=== PATIENT | male | born 1940 | race Caucasian/White ===

== ENCOUNTER → 2021-03-26 | Day surgery (SDC) | payer MEDICARE, MEDICAID ==
[2021-03-22 16:15] LABS: BASOPHILS # (AUTO) 0.1 X10'3 (0-0.2); EOSINOPHILS # (AUTO) 0.2 X10'3 (0-0.9); EOSINOPHILS % (AUTO) 2.5 % (0-6); LYMPHOCYTES # (AUTO) 1.8 X10'3 (1.1-4.8); LYMPHOCYTES % (AUTO) 21.1 % (21-51); MEAN CORPUSCULAR HEMOGLOBIN 31.6 PG (27.0-31.0); MEAN CORPUSCULAR HGB CONC 34.4 g/dL (33.0-36.5); MEAN CORPUSCULAR VOLUME 91.9 FL (78-98); MEAN PLATELET VOLUME 8.5 FL (7.4-10.4); MONOCYTES % (AUTO) 11.6 % (2-12); NEUTROPHILS # (AUTO) 5.3 X10'3 (1.8-7.7); NEUTROPHILS % (AUTO) 63.8 % (42-75); PRE OP HEMATOCRIT 40.4 % (42.0-52.0); PRE OP HEMOGLOBIN 13.9 g/dL (14.0-17.9); PRE OP PLATELET COUNT 314 X10'3 (140-440); RED CELL DISTRIBUTION WIDTH 12.9 % (11.5-14.5)
[2021-03-22 16:27] LABS: PARTIAL THROMBOPLASTIN TIME 35 SECONDS (22-32)
[2021-03-22 16:32] LABS: ALBUMIN/GLOBULIN RATIO 1.1 (1.1-1.5); ALKALINE PHOSPHATASE 89 IU/L (46-116); BLOOD UREA NITROGEN 24 MG/DL (7-18); CALCIUM 8.9 MG/DL (8.5-10.1); CHLORIDE 102 MMOL/L (99-107); PRE OP ALT 24 U/L (30-65); PRE OP ANION GAP 10 (8-16); PRE OP AST 14 U/L (10-37); PRE OP BILIRUB, TOTAL 0.3 MG/DL (0.0-1.0); PRE OP GLUCOSE 104 MG/DL (70-104); PRE OP POTASSIUM 4.1 MMOL/L (3.4-5.1); PRE OP SODIUM 139 MMOL/L (135-145); TOTAL CARBON DIOXIDE 27.3 MMOL/L (24-32); TOTAL PROTEIN 7.7 G/DL (6.4-8.2); eGFR 42 ML/MIN
[~2021-03-26] VITALS: Ht 182.9 cm; Wt 94.3 kg
[~2021-03-26] MED LIST: ACET-1025 PO; AMLO10TA13 PO; BIMA5DRO4 OP; DOCUMENT DATE & TIME OF BETA-BLOCKER PO ONE; IBUP-24 PO; LOSA25TA96 PO; METO-411 PO; MULT-1085 PO; OMEP-50 PO; ROPIVAcaine 0.5% (5mg/ml) 30ml vial ONE; cefazolin/dext.iso 2gm/50ml IV ONE; cloNIDine hcl/PF 100mcg/ml inj ONE; famotidine 20mg tablet PO ONE; ringers solution, lacted 1,000 ML IV SCH; tranexamic acid inj. 1,000 MG in 0.7% saline 100 ML PMX IV ONE; vancomycin 1,000mg inj ONE; vancomycin 1,500 MG in NS 300ml IV soln IV ONE
--- NOTE | 2021-03-26 14:15 | NUR ---
THE SURGERY IS CANCELED DUE TO THE NEED FOR CARDIAC WORKUP PRIOR TO THE SURGERY. PATIENT AND HIS DISCUSSED IT WITH DR. LUKE, AND ALSO TALKED WITH DR. VILLARREAL TO RESCHEDULE THE SURGERY. PATIENT AND HIS VERBALIZED UNDERSTANDING. IV DISCONTINUED FROM RIGHT AC WITHOUT COMPLICATIONS, CATHETER INTACT, PT AMBULATED OUT OF PAS UNIT ACCOMPANIED BY HIS . Addendum: 03/26/21 at 1456 by Tahmina Ballesteros RN Amended: Links added.
[2021-03-26 14:39] VITALS: BP 142/64
[2021-03-26 14:42] VITALS: BP 142/64
== END | disposition home or self-care (01) ==
LOC: PAS 12:25
PROVIDERS: ATTEND Orthopaedic Surgery
DX: M17.12 Unilateral primary osteoarthritis, left knee (principal); Z53.8 Procedure and treatment not carried out for other reasons; K21.9 Gastro-esophageal reflux disease without esophagitis; H40.9 Unspecified glaucoma; E66.9 Obesity, unspecified; Z68.28 Body mass index [BMI] 28.0-28.9, adult; I10 Essential (primary) hypertension; G47.30 Sleep apnea, unspecified; Z87.891 Personal history of nicotine dependence; Z20.822 Contact with and (suspected) exposure to COVID-19; Z88.8 Allergy status to other drugs, medicaments and biological substances; Z79.899 Other long term (current) drug therapy; Z79.01 Long term (current) use of anticoagulants
CPT/HCPCS: 36415; 80053; 82948; 85025; 85610; 85730; 86885; 86900; 86901; 86920; 87081; 93005; J0735; J2795; J3370; J3490; J7120; U0003; U0005; J0690; J7040

== ENCOUNTER 2021-05-28 09:03 | Day surgery (SDC) | payer MEDICARE, MEDICAID ==
[2021-05-22 12:36] LABS: BASOPHILS # (AUTO) 0.1 X10'3 (0-0.2); BASOPHILS % (AUTO) 0.7 % (0-1); EOSINOPHILS # (AUTO) 0.2 X10'3 (0-0.9); EOSINOPHILS % (AUTO) 2.3 % (0-6); LYMPHOCYTES # (AUTO) 1.6 X10'3 (1.1-4.8); LYMPHOCYTES % (AUTO) 20.2 % (21-51); MEAN CORPUSCULAR HEMOGLOBIN 31.1 PG (27.0-31.0); MEAN CORPUSCULAR VOLUME 91.4 FL (78-98); MEAN PLATELET VOLUME 8.5 FL (7.4-10.4); MONOCYTES # (AUTO) 0.9 X10'3 (0-0.9); MONOCYTES % (AUTO) 10.7 % (2-12); NEUTROPHILS # (AUTO) 5.3 X10'3 (1.8-7.7); NEUTROPHILS % (AUTO) 66.1 % (42-75); PRE OP HEMATOCRIT 45.1 % (42.0-52.0); PRE OP HEMOGLOBIN 15.4 g/dL (14.0-17.9); PRE OP PLATELET COUNT 287 X10'3 (140-440); RED BLOOD COUNT 4.93 X10'6 (4.70-6.10); RED CELL DISTRIBUTION WIDTH 12.9 % (11.5-14.5)
[2021-05-22 12:52] LABS: PRE OP PROTIME 10.1 SECONDS (9.0-12.0)
[2021-05-22 13:07] LABS: ALBUMIN 4.3 G/DL (3.4-5.0); ALBUMIN/GLOBULIN RATIO 1.3 (1.1-1.5); ALKALINE PHOSPHATASE 92 IU/L (46-116); BLOOD UREA NITROGEN 23 MG/DL (7-18); BUN/CREATININE RATIO 17.4 (5.4-32.0); CHLORIDE 101 MMOL/L (99-107); CREATININE 1.32 MG/DL (0.60-1.10); PRE OP ALT 28 U/L (30-65); PRE OP ANION GAP 9 (8-16); PRE OP AST 19 U/L (10-37); PRE OP BILIRUB, TOTAL 0.4 MG/DL (0.0-1.0); PRE OP GLUCOSE 95 MG/DL (70-104); PRE OP POTASSIUM 4.5 MMOL/L (3.4-5.1); PRE OP SODIUM 138 MMOL/L (135-145); TOTAL CARBON DIOXIDE 27.7 MMOL/L (24-32); TOTAL PROTEIN 7.6 G/DL (6.4-8.2); eGFR 52 ML/MIN
[~2021-05-28] VITALS: Ht 182.9 cm; Wt 91.4 kg
[2021-05-28] VITALS (22 sets, daily range): BP systolic 101–154; BP diastolic 50–77
[~2021-05-28 09:03] MED LIST changes: -BIMA5DRO4 OP; -DOCUMENT DATE & TIME OF BETA-BLOCKER PO ONE; -LOSA25TA96 PO; -OMEP-50 PO; +OMEP20CA16 PO; -ROPIVAcaine 0.5% (5mg/ml) 30ml vial ONE; +TRAV5DRO EACHEYE; -cloNIDine hcl/PF 100mcg/ml inj ONE; -ringers solution, lacted 1,000 ML IV SCH; -vancomycin 1,000mg inj ONE
[2021-05-28] MEDS ORDERED: morphine 4 MG/ML inj SYRINge IV PRN (09:20)
[2021-05-28] MEDS ORDERED: ringers solution, lacted 1,000 ML IV SCH (09:20)
[2021-05-28] MEDS ORDERED: ondansetron/PF 4mg/2ml inj IV PRN ×2 (09:20→14:15)
[2021-05-28] MEDS ORDERED: morphine 2 MG/ML inj. syringe IV PRN (09:20)
[2021-05-28] MEDS ORDERED: proCHLORperazine 10 MG/2 ml inj IV PRN (09:20)
[2021-05-28] MEDS ORDERED: cloNIDine hcl/PF 100mcg/ml inj ONE (09:37)
[2021-05-28] MEDS ORDERED: ketorolac trometh. 30mg/ml inj. ONE (09:37)
[2021-05-28] MEDS ORDERED: vancomycin 1,000mg inj ONE (09:38)
[2021-05-28] MEDS ORDERED: ROPIVAcaine 0.5% (5mg/ml) 30ml vial ONE ×2 (09:38→11:39)
[2021-05-28] MEDS: ringers solution, lacted 1,000 ML IV SCH ×2 (10:04→16:45)
[2021-05-28] MEDS ORDERED: MIDAZolam 1 MG/ML 5ML VIAL ONE (11:11)
[2021-05-28] MEDS ORDERED: fentaNYL/PF 50MCG/1 ML 2ML syringe ONE (11:11)
[2021-05-28] MEDS ORDERED: propofol inj 20 ML IV ONE (11:39)
[2021-05-28] MEDS ORDERED: diphenhydrAMINE 25mg capsule PO PRN ×2 (14:15)
[2021-05-28] MEDS ORDERED: HYDROmorphone 1 mg/ml syringe IV PRN (14:15)
[2021-05-28] MEDS ORDERED: HYDROmorphone inj. 0.5 MG/0.5 ML DISP.SYRIN IV PRN (14:15)
[2021-05-28] MEDS ORDERED: bisacodyl 10mg suppository rectal RC PRN (14:15)
[2021-05-28] MEDS ORDERED: magnesium hydroxide 30ml (MOM) UD suspension PO PRN (14:15)
[2021-05-28] MEDS ORDERED: acetaminophen 325mg tablet PO PRN (14:15)
[2021-05-28] MEDS ORDERED: HYDROcodone/acetaminophen 10/325mg tab PO PRN (14:15)
--- NOTE | 2021-05-28 14:18 | NUR ---
Received from OR via BED, accompanied by Anesthesiologist DR STROUD and report given by Anesthesiologist. PT DROWSY, DENIES PAIN. LEFT KNEE W/WRAP, ICE PACK, SON DRSG CDI. DERMATOME LEVEL L 1-2. Addendum: 05/28/21 at 1443 by Zonia Lorenzo RN Amended: Links added.
[2021-05-28] MEDS: ceFAZolin/D5W- 1GM premix 50 ML IV SCH (16:00)
--- NOTE | 2021-05-28 16:08 | NUR ---
Report called to receiving nurse. 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 RECEIVING RN AT BEDSIDE TO RECEIVE PT. BLL, CALL LIGHT GIVEN, SIDE RAILS UP X 2. Special Issues communicated to receiving nurse. YES. Addendum: 05/28/21 at 1625 by Zonia Lorenzo RN Amended: Links added.
[2021-05-28] MEDS: potassium Cl 20mEq in NS 1,000 ML IV SCH (17:11)
[2021-05-28] MEDS: aspirin 81mg, enteric-coated 1 TAB TABLET.DR PO SCH (17:28)
--- NOTE | 2021-05-28 18:37 | NUR ---
Patient in room [facility]. I have received report from Ian COLEMAN and had the opportunity to ask questions and assume patient care.
[2021-05-28] MEDS: HYDROcodone/acetaminophen 10/325mg tab PO PRN (18:57)
[2021-05-28] MEDS ORDERED: sennosides 8.6mg tablet PO SCH (21:00)
[2021-05-28] MEDS ORDERED: latanoprost 0.005% 2.5ml ophthalmic drops EACHEYE SCH (21:00)
[2021-05-28] MEDS ORDERED: TRAVOPROST 0.004% EACHEYE SCH (23:01)
[2021-05-28] MEDS ORDERED: OPTH EACHEYE SCH (23:01)
[2021-05-29] VITALS: BP 110/54
[2021-05-29] MEDS: ceFAZolin/D5W- 1GM premix 50 ML IV SCH (00:32)
[2021-05-29] MEDS: HYDROcodone/acetaminophen 10/325mg tab PO PRN ×3 (00:38→11:46)
[2021-05-29 03:48] VITALS: BP 120/59
[2021-05-29] MEDS: potassium Cl 20mEq in NS 1,000 ML IV SCH (03:52)
[2021-05-29 06:00] LABS: BASOPHILS % (AUTO) 0.1 % (0-1); EOSINOPHILS % (AUTO) 0 % (0-6); HEMATOCRIT 41.5 % (42.0-52.0); HEMOGLOBIN 13.8 g/dl (14.0-17.9); LYMPHOCYTES # (AUTO) 0.6 X10'3 (1.1-4.8); LYMPHOCYTES % (AUTO) 5.1 % (21-51); MEAN CORPUSCULAR HEMOGLOBIN 30.8 PG (27.0-31.0); MEAN CORPUSCULAR HGB CONC 33.3 g/dL (33.0-36.5); MEAN CORPUSCULAR VOLUME 92.5 FL (78-98); MEAN PLATELET VOLUME 8.8 FL (7.4-10.4); MONOCYTES # (AUTO) 0.9 X10'3 (0-0.9); MONOCYTES % (AUTO) 7.2 % (2-12); NEUTROPHILS # (AUTO) 10.8 X10'3 (1.8-7.7); NEUTROPHILS % (AUTO) 87.6 % (42-75); PLATELET COUNT 258 X10'3 (140-440); RED BLOOD COUNT 4.49 X10'6 (4.70-6.10); RED CELL DISTRIBUTION WIDTH 12.6 % (11.5-14.5); WHITE BLOOD COUNT 12.3 X10'3 (4.5-11.0)
--- NOTE | 2021-05-29 06:36 | NUR ---
Problems reprioritized. Patient report given, questions answered & plan of care reviewed with Ian COLEMAN.
[2021-05-29 07:00] VITALS: BP 133/56
[2021-05-29 07:19] LABS: ALANINE AMINOTRANSFERASE 21 U/L (12-78); ALBUMIN 3.3 G/DL (3.4-5.0); ALBUMIN/GLOBULIN RATIO 1.1 (1.1-1.5); ALKALINE PHOSPHATASE 66 IU/L (46-116); ANION GAP 7 (8-16); ASPARTATE AMINO TRANSFERASE 16 U/L (10-37); BILIRUBIN,TOTAL 0.5 MG/DL (0.1-1.0); BLOOD UREA NITROGEN 23 MG/DL (7-18); BUN/CREATININE RATIO 19.8 (5.4-32.0); CALCIUM 8.4 MG/DL (8.5-10.1); CHLORIDE 108 MMOL/L (99-107); CREATININE 1.16 MG/DL (0.60-1.10); GLUCOSE 135 MG/DL (70-104); POTASSIUM 4.9 MMOL/L (3.5-5.1); SODIUM 140 MMOL/L (135-145); TOTAL CARBON DIOXIDE 25.3 MMOL/L (24-32); TOTAL PROTEIN 6.4 G/DL (6.4-8.2); eGFR 60 ML/MIN
[2021-05-29] MEDS ORDERED: metoprolol succinate 25mg (24-HOUR) SR. Tablet PO SCH (08:00)
[2021-05-29] MEDS ORDERED: amLODIPine 5mg tablet PO SCH (08:00)
[2021-05-29] MEDS ORDERED: pantoprazole 40mg Tablet.DR PO SCH (08:00)
[2021-05-29 08:12] VITALS: BP_SYST 120
[2021-05-29] MEDS: aspirin 81mg, enteric-coated 1 TAB TABLET.DR PO SCH (08:12)
[2021-05-29] MEDS ORDERED: HYDR-3972 PO (12:09)
--- NOTE | 2021-05-29 12:49 | NUR ---
Initial: Pt admix dx left TKA per EMR. Pt PO intake 50% x 2 regular meals. Partially meeting needs per EMR. Pt seen by [facility] and YULIANA coe for written/verbal high protein diet education w/ RD contact information provided. Pt reports consuming high protein foods, MVI, and vitamin C supplement at home. LBM not documented, bowel care available PRN. Will continue to monitor for further nutrition intervention. Recommendations 1. Continue regular diet, encourage PO 2. Monitor for ONS needs pending further PO history 3. Routine bowel care 4. Weekly scaled wts Addendum: 05/29/21 at [address] Amended: Links added. Addendum: 05/29/21 at [address] [facility] has reviewed and approves of above note.
[2021-05-29] MEDS ORDERED: ASPI-1071 PO (13:49)
[2021-05-29] MEDS ORDERED: ASPI-1265 PO (14:00)
== END 2021-05-29 15:58 | disposition home or self-care (01) ==
LOC: PAS 09:03 → SUR 3N 16:41 → PAS 05-29 15:58
PROVIDERS: ATTEND Orthopaedic Surgery
DX: M17.12 Unilateral primary osteoarthritis, left knee (principal); G89.18 Other acute postprocedural pain; K21.9 Gastro-esophageal reflux disease without esophagitis; G47.30 Sleep apnea, unspecified; H40.9 Unspecified glaucoma; Z98.890 Other specified postprocedural states; Z98.1 Arthrodesis status; Z20.822 Contact with and (suspected) exposure to COVID-19; Z87.891 Personal history of nicotine dependence; Z88.8 Allergy status to other drugs, medicaments and biological substances; Z79.899 Other long term (current) drug therapy; Z79.01 Long term (current) use of anticoagulants
CPT/HCPCS: 27447; 36415; 64447; 64999; 76942; 80053; 82948; 85025; 85610; 85730; 86885; 86900; 86901; 87081; 97116; 97161; 97530; C1713; C1758; C1776; J0690; J0735; J1885; J2250; J2704; J2795; J3010; J3370; J3480; J3490; J7030; J7040; J7120; U0003; U0005; Z7506; Z7508; Z7512; A6449; A6455; A7000; A9272; G0378